=== PATIENT | female | born 1970 | race Caucasian/White ===

== ENCOUNTER 2021-12-17 02:48 | Day surgery (SDC) | payer OTHER, SELFPAY ==
[2021-12-13 11:25] VITALS: BMI 26.2
--- NOTE | 2021-12-13 11:29 | PC.NURSE ---
Report to the Outpatient Waiting Room, entrance under the green pavilion located off [facility], at time _0930 on date __12/17/21 . OR Time: _1129 . - You and your visitor will be asked a series of questions to screen for COVID 19 for your protection. - A mask is required within the hospital. Preoperative COVID Testing Requirements: No COVID Test needed if: (proof is required; if not received patient will have Rapid Test prior to entry) - Patient has received COVID Vaccine at least 14 days prior to procedure date or - Patient has positive COVID test result within last 90 days of surgery date. COVID Test needed if above criteria is not met If not COVID vaccinated a COVID test must be conducted within 72 hours of surgery and patient is asked to isolate self from time of testing until procedure. You will go to the [facility] [facility] for your COVID testing. The [facility] [facility] site is located at the corner of [address] [facility]. You will only be called if COVID results are positive and your surgeon may reschedule your elective surgery date. Patients may have clear liquids (water, carbonated beverages, clear teas, apple juice) until 3 hours prior to surgery with a maximum of 20 ounces. - No food from midnight until time of surgery - Infants may have breast milk until 4 hours before surgery, formula 6 hours prior to surgery. - Children will be allowed to drink immediately following surgery. If applicable, please bring a bottle or sippy cup to assist with drinking. Juice, water, soda, and popsicles are readily available. For infants on formula, please bring formula the day of surgery. Pacifiers are allowed. Take the following medications with a SIP of water the morning of surgery: NONE Medications to discontinue per physician NONE Date to take last dose Please no make-up, nail sudanese, hairspray, perfume, deodorant, or body powder the day of surgery. No jewelry (including any body piercings) or valuables the day of surgery, leave them at home. Please take a shower or bath the night before, or the morning of, surgery with an antibacterial soap. Wear comfortable, loose fitting clothing. Children are encouraged to wear pajamas. - Jewelry must be removed prior to entering the operating room. Rings and piercings that are not removed may be cut off. - The hospital will not accept responsibility for valuables. - Please leave all valuables, including medications, at home the day of surgery. If you are going home after surgery, a licensed shuttle truck driver must drive you home. - NO public transportation without another adult. - We recommend that an adult stay with you for 24 hours following discharge. - We also recommend that you do not drive, make important decision, drink alcoholic beverages, or take any drugs that were not prescribed by your health care provider for at least 24 hours after your discharge time. For Pediatric surgeries, we recommend two adults accompany the child home (only one inside the building at this time). One visitor will be allowed to accompany the patient into the hospital. Patients visitor will be instructed to remain with patient at all times or leave the building. We will allow the visitor to come back to the postoperative area when patient is ready. Follow any additional instructions given to you from your surgeon. Telephone instructions given to ____PATIENT and asked if any additional questions and then verbalized understanding. Patient advised to call surgeon office or pre surgery nurse liaison [phone] if any additional questions.
--- NOTE | 2021-12-15 07:38 | PM.IMHP ---
H&P: HPI History of Present Illness Date/Time: 12/15/21 07:38 this pleasant 51-year-old female who is admitted for removal of her IUD. This was attempted in the office is 1 able to be removed she will have this undertaken via hysteroscopic removal risks and benefits reviewed in full. She will have a new IUD replaced Chief Complaint: impacted IUD Review of Systems Review of Systems: All systems reviewed & are unremarkable except as noted in HPI and below PMFSH Social History Social History Smoking status: Never smoker Alcohol intake: current Drinks per week: 3 Living arrangements: with family Spiritual care concerns: No Meds Home Medications and Allergies Home Medications Medication Instructions Recorded Confirmed Type estradiol-norethindrone acet 1 tablet PO DAILY 12/13/21 12/13/21 History Allergies Allergy/AdvReac Type Severity Reaction Status Date / Time Penicillins Allergy Unknown Anaphylaxis Verified 12/13/21 11:14 Exam Const: General: no acute distress Eyes: General: appearance normal, both eyes and all related structures Neck: Neck: supple and no JVD Thyroid: thyroid normal Resp: Effort & Inspection: normal respiratory effort Auscultation: clear to auscultation bilaterally Cardio: Rate: regular rate Rhythm: regular rhythm GI: Inspection: non-distended GI Palp: Yes Soft to palpation, No Tenderness to palpation present (GI) and No Guarding due to palpation present (GI) Auscultation: normal bowel sounds : General: Yes bladder normal to palpation External Female Exam: normal external appearance Speculum Exam - Vagina: normal vaginal discharge and No vaginal bleeding Speculum Exam - Cervix: nontender Bimanual exam- vagina & uterus: bladder normal to palpation and No Cervical tenderness present OB/external & speculum: No vaginal bleeding Skin: General skin exam: no rashes or lesions noted Extrem: General: normal to inspection and no edema Psych: Mental Status: mental status grossly normal Affect: normal affect Assessment and Plan Additional Plan impression: Impacted IUD Plan hysteroscopic removal of IUD and replacement of new IUD
--- NOTE | 2021-12-17 06:47 | WPDHPUPDATE1 ---
History and Physical Update Update Date/Time: 12/17/21 06:47 History and Physical has been reviewed, including an updated exam of the patient. There are NO changes in the patient's condition. Risks, benefits, and alternatives have been discussed and questions answered. Patient agrees to proceed with procedure.
[2021-12-17 09:58] VITALS: BP 124/66; PULSE 75; RESP 16; TEMP 36.7; O2SAT 100
[2021-12-17] MEDS: LACTATED RINGERS 1,000 ML 30 ML IV CONT (10:00)
[2021-12-17] MEDS: ACETAMINOPHEN 500 MG TABLET 1000 MG PO (10:00)
[2021-12-17 10:16] LABS: Hematocrit 42.9 % (37.0-47.0); Hemoglobin 14.7 g/dL (12.0-15.0)
--- NOTE | 2021-12-17 10:45 | WPDANESEPPF ---
Anes - Initial Pre Proc Eval Procedure: Operation Date: 12/17/21 11:30 Proposed Procedures p Hysteroscopy with Intrauterine Device Removal and Replace of Intrauterine Device - Jony Hudson MD Date/Time: 12/17/21 10:45 Surgeon: Jony Hudson MD Pre Op Diagnosis: impacted iud Patient Data Age: 51 Gender: F Height: 1.61 m Weight: 71.4 kg Last Vital Signs Temp 36.7 C 12/17/21 09:58 Pulse 75 12/17/21 09:58 Resp 16 12/17/21 09:58 BP 124/66 12/17/21 09:58 Pulse Ox 100 12/17/21 09:58 Allergies Allergy/AdvReac Type Severity Reaction Status Date / Time Penicillins Allergy Unknown Anaphylaxis Verified 12/17/21 09:57 Home Medications Medication Instructions Recorded Confirmed Type estradiol-norethindrone acet 1 tablet PO DAILY 12/13/21 12/17/21 History hydrocodone-acetaminophen 1 tablet PO Q4H PRN #14 tablet 12/17/21 Rx Laboratory Tests 12/17/21 09:43 Hgb 14.7 g/dL g/dL (12.0-15.0) Hct 42.9 % % (37.0-47.0) Patient hx anesthesia problems: post op nausea/vomiting Family hx anesthesia problems: none Results Review: All pre-operative results and documents have been reviewed as part of the pre-operative evaluation. [facility] Social History Social History Smoking status: Never smoker Alcohol intake: current Drinks per week: 3 Living arrangements: with family Spiritual care concerns: No Anes - Eval Final PreProcedure Day of Procedure 12/17/21 10:45 Patient weight: overweight Heart: regular rate and rhythm Lungs: clear to auscultation Airway: Mallampati scale class II Neurological: alert and oriented Last oral intake: >/= 8 hours ASA classification: II Emergent: no Anesthetic plan: proceed Anesthesia type and monitoring: general GIVS and standard monitoring Results Review: All pre-operative results and documents have been reviewed as part of the pre-operative evaluation. Informed Consent: The patient's anesthetic plan and its attendant risks and benefits were discussed with the patient/family/POA. Questions were solicited and answers provided to the satisfaction of the patient/family/POA.
--- NOTE | 2021-12-17 11:14 | W.PM.PROC2 ---
Procedure Note - Detailed Date of Procedure 12/17/21 Pre-op Diagnosis impacted iud Post-op Diagnosis Same Procedure Performed Hysteroscopy/hysteroscopic removal of impacted IUD/dilatation curettage/placement of new IUD Surgeon Jony Hudson MD Anesthesia MAC and Local Indications This is a 51-year-old female with an impacted IUD which I could not remove in the office. She desired the placement of a 2nd IUD Findings The Mirena IUD was in the uterine cavity and irregular presentation Description of Procedure The patient was prepped and draped in the normal sterile fashion placed in the dorsal lithotomy position. Under excellent IV sedation weighted speculum placed in posterior fornix vagina. Anterior lip grasped with a single-tooth tenaculum and 2.5cc of 1% xylocaine anesthesia placed at 2, 4, 8, 10:00 a.m. of the cervix. The hysteroscope was inserted after dilating the uterine cervix. Hysteroscopic leave the IUD was grasped and removed in 1 piece. Uterus sounded to7.5cm. The uterus scraped over the entire 360? till good grating sound was heard. The instruments removed and the Mirena was placed sterilely in the uterus from the new package. String was cut to an edge. See her back in 2 weeks blood loss estimated 1cc. All sponge, needle, instrument counts were correct. There were no immediate complications Estimated Blood Loss 1 Drains No Packing No Pathology None sent Complications No immediate complications Condition Stable Disposition PACU
[2021-12-17 11:17] VITALS: BP 113/65; PULSE 73; RESP 14; O2SAT 96
[2021-12-17] MEDS: oxyCODONE HCL (*CRX) 5 MG TAB IR PO (11:46)
[2021-12-17 11:48] VITALS: BP 127/62; PULSE 62; RESP 16
== END 2021-12-17 12:09 | disposition home or self-care (01) ==
PROVIDERS: PCP Family Medicine; Visit Provider Obstetrics & Gynecology
PROC: 0U5B8ZZ Destruction of Endometrium, Via Natural or Artificial Opening Endoscopic (ICD-10-PCS; CPT 58563; principal; 2021-12-17 11:30)
DX: T83.39XA Other mechanical complication of intrauterine contraceptive device, initial encounter (principal); N85.8 Other specified noninflammatory disorders of uterus
CPT/HCPCS: 58562; 58300; 36415; 85014; 85018; 88305; A9270; J1100; J2250; J2270; J2405; J2704; J7030; J7120